=== PATIENT | female | born 1995 | race Caucasian/White ===

== ENCOUNTER → 2016-05-11 | Outpatient (CLI) | payer OTHER ==
[~2016-05-11] MED LIST: BUPR-79 PO; CLON1TAB3 PO; EFFSR75 PO
[2016-05-17 13:53] LABS: CHLAMYDIA TRACH RNA*** NOT DETECTED (NOT DETECTED); GC (NEIS GONORRHOEAE)RNA** NOT DETECTED (NOT DETECTED)
== END | disposition home or self-care (01) ==
LOC: C.LABSPEC 11:39
PROVIDERS: ATTEND Obstetrics & Gynecology
DX: Z11.3 Encounter for screening for infections with a predominantly sexual mode of transmission (principal)

== ENCOUNTER → 2016-05-14 | Outpatient (CLI) | payer OTHER | END | disposition home or self-care (01) | LOC: C.PAPS 15:21 | PROVIDERS: ATTEND Obstetrics & Gynecology | DX: Z01.419 Encounter for gynecological examination (general) (routine) without abnormal findings (principal); R87.610 Atypical squamous cells of undetermined significance on cytologic smear of cervix (ASC-US) ==

== ENCOUNTER 2016-06-10 08:16 | Emergency (ER) | payer OTHER ==
[~2016-06-10] VITALS: Ht 167.6 cm; Wt 62.0 kg
[2016-06-10 08:22] VITALS: TEMP 37.2; Ht 167.6 cm; Wt 62.0 kg
--- NOTE | 2016-06-10 08:27 | EMERGENCY ROOM VISIT NOTE ---
History Report prepared by Jenna: Pablo Taylor Under the Supervision of: Dr. Yahir Roldan M.D. First contact with patient: 08:15 Stated Complaint: OVERDOSE History of Present Illness The patient is a 21 year old female who presents to the Emergency Room with complaints of a sudden Excedrin overdose beginning five hours prior to arrival. She states she was heavily drinking alcohol last night, and she took approximately 15 Excedrin pills around 0300. The patient denies taking any other medication. She states she does not know why she took the pills, but it was not with intent to hurt herself. The patient notes she fell asleep after, and woke up with nausea that she is still experiencing. She states she has a history of panic disorder, so she was feeling nervous upon awakening, as well. The patient denies an experience like today's episode in the past. She notes she takes Wellbutrin and Effexor, as well. The patient denies vomiting, pain in the legs, and any other medical concerns at this time. 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 Please see Additional Medical History Sheet. Past Medical & Surgical Medical Problems: (1) Panic disorder Family History Patient reports no known family medical history. Social History Marital Status: single Occupation Status: [employer] student Current/Historical Medications Scheduled Bupropion (Wellbutrin Sr), 150 MG PO QAM Venlafaxine Hcl (Effexor Extended Rel), 75 MG PO QAM Scheduled PRN Clonazepam (Klonopin), 1 MG PO TID PRN for Anxiety Allergies Coded Allergies: Penicillins (Unverified Allergy, Unknown, RASH, 06/10/16) Physical Exam Vital Signs Date Time Temp Pulse Resp B/P Pulse Ox O2 Delivery O2 Flow Rate FiO2 06/10/16 11:26 114/69 06/10/16 10:06 108 17 111/62 99 Room Air 06/10/16 09:33 107 19 100 Room Air 06/10/16 08:54 103 06/10/16 08:30 99 Room Air 06/10/16 08:22 37.2 134 22 159/84 99 Room Air Physical Exam GENERAL: Patient awake, alert, oriented x 3, and anxious appearing. Patient follows commands. Patient does not appear toxic. Patient is adequately hydrated and well-nourished. SKIN: No erythema, pallor, cyanosis or rash HEENT: Normal head, pupils equal, reactive to light and accommodation. LUNGS: Clear to auscultation. No wheezes, no rales, no rhonchi. HEART: No murmurs. No gallops. No rubs ABDOMEN: No masses, no rebound, no hepatomegaly or splenomegaly. EXTREMITIES: No signs of trauma or infection. NEUROLOGIC: Cranial nerves II-XII within normal limits. No gross motor sensory function deficits. Medical Decision & Procedures ER Provider Diagnostic Interpretation: X ray results are stated below per my interpretation and the radiologist's interpretation. CHEST 2 VIEWS ROUTINE CLINICAL HISTORY: Excedrin overdose overdose COMPARISON STUDY: No previous studies for comparison. FINDINGS: The bones soft tissues and hemidiaphragms are normal. The cardiomediastinal silhouette is normal. The lungs are clear. The pulmonary vasculature is normal. IMPRESSION: Negative chest. Electronically signed by: Trino Sheehan M.D. 06/10/2016 8:59 AM Laboratory Results 06/10/16 08:32 06/10/16 08:32 Test 06/10/16 08:32 06/10/16 08:45 Red Blood Count 4.92 M/uL (4.2-5.4) Mean Corpuscular Volume 92.3 fL (80-100) Mean Corpuscular Hemoglobin 32.3 pg (25-34) Mean Corpuscular Hemoglobin Concent 35.0 g/dl (32-36) RDW Standard Deviation 43.0 fL (36.4-46.3) RDW Coefficient of Variation 12.7 % (11.5-14.5) Mean Platelet Volume 9.2 fL (7.4-10.4) Anion Gap 12.0 mmol/L (3-11) Est Creatinine Clear Calc Drug Dose 138.8 ml/min Estimated GFR () > 150.0 Estimated GFR (Non- 130.3 BUN/Creatinine Ratio 14.7 (10-20) Calcium Level 9.5 mg/dl (8.5-10.1) Total Bilirubin 0.2 mg/dl (0.2-1) Aspartate Amino Transf (AST/SGOT) 18 U/L (15-37) Alanine Aminotransferase (ALT/SGPT) 29 U/L (12-78) Alkaline Phosphatase 79 U/L (45-117) Troponin I < 0.015 ng/ml (0-0.045) Total Protein 8.6 gm/dl (6.4-8.2) Albumin 4.3 gm/dl (3.4-5.0) Globulin 4.3 gm/dl (2.5-4.0) Albumin/Globulin Ratio 1.0 (0.9-2) Salicylates Level 24.0 mg/dl (2.8-20) Acetaminophen Level 31 ug/ml (10-30) Ethyl Alcohol mg/dL 37.0 mg/dl (0-3) Urine Color YELLOW Urine Appearance CLEAR (CLEAR) Urine pH 6.5 (4.5-7.5) Urine Specific [place] 1.015 (1.000-1.030) Urine Protein NEG (NEG) Urine Glucose (UA) NEG (NEG) Urine Ketones 1+ (NEG) Urine Occult Blood TRACE (NEG) Urine Nitrite NEG (NEG) Urine Bilirubin NEG (NEG) Urine Urobilinogen NEG (NEG) Urine Leukocyte Esterase TRACE (NEG) Urine WBC (Auto) 1-5 /hpf (0-5) Urine RBC (Auto) 5-10 /hpf (0-4) Urine Hyaline Casts (Auto) 1-5 /lpf (0-5) Urine Epithelial Cells (Auto) >30 /lpf (0-5) Urine Bacteria (Auto) NEG (NEG) Urine Opiates Screen NEG (NEG) Urine Methadone, Qualitative NEG (NEG) Urine Barbiturates NEG (NEG) Urine Phencyclidine (PCP) Level NEG (NEG) Ur Amphetamine/Methamphetamine NEG (NEG) MDMA (Ecstasy) Screen NEG (NEG) Urine Benzodiazepines Screen NEG (NEG) Urine Cocaine Metabolite NEG (NEG) Urine Marijuana (THC) NEG (NEG) Laboratory results as stated above per my review. Medications Administered Medications (Trade) Dose Ordered Sig/Nikolai Route Start Time Stop Time Status Last Admin Dose Admin Sodium Chloride (Nss 1000ml) 1,000 ml @ 1,000 mls/hr Q1H ONCE IV 06/10/16 09:00 06/10/16 09:59 DC 06/10/16 08:59 1,000 MLS/HR Ondansetron HCl 4 mg 4 mg Q1HWA PRN IV 06/10/16 09:00 06/10/16 11:35 DC 06/10/16 09:00 4 MG Promethazine HCl/ Sodium Chloride (Phenergan Inj/ Nss 50ml) 50.5 ml @ 204 mls/hr NOW STAT IV 06/10/16 09:54 06/10/16 10:08 DC 06/10/16 10:05 204 MLS/HR Clonazepam (Klonopin Tab) 1 mg ONE ONCE PO 06/10/16 10:00 06/10/16 10:01 DC 06/10/16 10:05 1 MG ECG Indication: toxicologic Rate (beats per minute): 111 Rhythm: sinus tachycardia Findings: no acute ischemic change, no ectopy ED Course 0816: Past medical records reviewed. The patient was evaluated in room B3B. A complete history and physical examination was performed. 0900: Ordered Zofran Inj 4 mg IV, Sodium Chloride 1,000 ml @ 1,000 mls/hr IV. 0954: Ordered Promethazine HCl 12.5 mg/Sodium Chloride 50.5 ml @ 204 mls/hr IV. 0959: Reevaluated the patient at this time and updated her. 1000: Ordered Klonopin Tab 1 mg PO. 1115: Upon reevaluation, the patient appeared to have improvement of her symptoms. I discussed today's findings with her. She verbalized agreement of the treatment plan. The patient was discharged home. Medical Decision Nurses notes reviewed. Medical history sheet reviewed. Differential diagnosis includes but is not limited to: acetaminophen/salicylate overdose, alcohol overdose, depression. The patient is here after ingesting proxy 15 Excedrin several hours ago. I was concerned about salicylate or acetaminophen toxicity. The patient also drank alcohol. Multiple labs, EKG, imaging were performed. The patient's levels are below the level required for treatment. The patient was given Zofran and Phenergan for nausea. She was observed for approximately 3 hours. Patient was stable and felt better at time of discharge. Impression Primary Impression: Acetaminophen overdose Additional Impressions: Salicylate overdose Hypokalemia Scribe Attestation The scribe's documentation has been prepared under my direction and personally reviewed by me in its entirety. I confirm that the note above accurately reflects all work, treatment, procedures, and medical decision making performed by me. Departure Information Dispostion Home / Self-Care Forms HOME CARE DOCUMENTATION FORM, IMPORTANT VISIT INFORMATION Patient Instructions My [facility] Additional Instructions Drink extra fluids today. No Excedrin, Tylenol or aspirin for the next 2 days. Return here if you are nauseous or having any other symptoms. Problem Qualifiers
[2016-06-10 08:30] VITALS: O2SAT 99
[2016-06-10 08:49] LABS: HEMATOCRIT 45.4 % (37-47); MEAN CELL VOLUME 92.3 fL (80-100); MEAN CORPUSCULAR HEMOGLOBIN 32.3 pg (25-34); MEAN PLATELET VOLUME 9.2 fL (7.4-10.4); PLATELET COUNT 275 K/uL (130-400); RED BLOOD COUNT 4.92 M/uL (4.2-5.4); WHITE BLOOD COUNT 5.02 K/uL (4.8-10.8)
[2016-06-10 09:00] LABS: MANUAL MICROSCOPIC REQUIRED? NO; REVIEW REQ? NO; URINE APPEARANCE CLEAR (CLEAR); URINE BILIRUBIN NEG (NEG); URINE COLOR YELLOW; URINE EPITHELIAL CELL AUTO >30 /lpf (0-5); URINE NITRITE NEG (NEG); URINE PH 6.5 (4.5-7.5); URINE SPECIFIC GRAVITY 1.015 (1.000-1.030); UROBILINOGEN NEG (NEG); ZZUR CULT IF INDIC CLEAN CATCH NO
[2016-06-10] MEDS ORDERED: SODIUM CHLORIDE 0.9% 1000ML 1,000 ML IV ONE (09:00)
[2016-06-10] MEDS ORDERED: ONDANSETRON INJ 2 MG/ML 2 ML VIAL IV PRN (09:00)
--- NOTE | 2016-06-10 09:00 | DIAGNOSTIC IMAGING REPORT ---
CHEST 2 VIEWS ROUTINE CLINICAL HISTORY: Excedrin overdose overdose COMPARISON STUDY: No previous studies for comparison. FINDINGS: The bones soft tissues and hemidiaphragms are normal. The cardiomediastinal silhouette is normal. The lungs are clear. The pulmonary vasculature is normal. IMPRESSION: Negative chest. Electronically signed by: Trino Sheehan M.D. 06/10/2016 8:59 AM Dictated Date/Time: 06/10/2016 8:58 AM
[2016-06-10 09:05] LABS: BLOOD UREA NITROGEN 9 mg/dl (7-18); BUN/CREATININE RATIO 14.7 (10-20); CALCIUM 9.5 mg/dl (8.5-10.1); CARBON DIOXIDE 23 mmol/L (21-32); CHLORIDE 109 mmol/L (98-107); GLUCOSE 105 mg/dl (70-99); POTASSIUM 3.3 mmol/L (3.5-5.1); SODIUM 144 mmol/L (136-145)
[2016-06-10 09:09] LABS: ALKALINE PHOSPHATASE 79 U/L (45-117); ALT/SGPT 29 U/L (12-78); AST/SGOT 18 U/L (15-37)
[2016-06-10 09:15] LABS: BENZODIAZEPINE, URINE NEG (NEG); COCAINE,URINE NEG (NEG); PHENCYCLIDINE, URINE NEG (NEG)
[2016-06-10] MEDS ORDERED: BUPR-79 PO (09:27)
[2016-06-10] MEDS ORDERED: EFFSR75 PO (09:27)
[2016-06-10] MEDS ORDERED: CLON1TAB3 PO (09:27)
[2016-06-10] MEDS ORDERED: PROMETHAZINE HCL INJ 12.5 MG in SODIUM CHLORIDE 0.9% 50ML 50 ML IV STA (09:54)
[2016-06-10] MEDS ORDERED: CLONAZEPAM 1 MG TAB PO ONE (10:00)
[2016-06-10 10:06] VITALS: PULSE 108; O2SAT 99
[2016-06-10 11:26] VITALS: BP 114/69
== END 2016-06-10 11:27 | disposition home or self-care (01) ==
LOC: EDBD 08:16 → C.EDB 08:17
DX: T39.1X1A Poisoning by 4-Aminophenol derivatives, accidental (unintentional), initial encounter (principal); T39.091A Poisoning by salicylates, accidental (unintentional), initial encounter; E87.6 Hypokalemia; R00.0 Tachycardia, unspecified; F41.0 Panic disorder [episodic paroxysmal anxiety]; Z79.899 Other long term (current) drug therapy; Z88.0 Allergy status to penicillin

== ENCOUNTER → 2016-06-13 | Outpatient (CLI) | payer OTHER ==
--- NOTE | 2016-06-13 13:34 | MAMMOGRAPHY REPORT ---
ULTRASOUND OF LEFT BREAST: 06/13/2016 CLINICAL HISTORY: 21-year-old woman who felt a 3 cm lump in the 6:00 left breast approximately one m onth ago. No skin redness or nipple discharge. However the patient does report nipple itchiness an d other nipple symptoms. COMPARISON: No prior exams were available for comparison. FINDINGS: Real-time high-resolution sonographic evaluation was performed in the periareolar/retroar eolar left breast and also in the area of palpable lump which was pointed out by the patient (occupy ing the 5:00, 6:00 and 7:00 inferior left breast). On palpation there is an island/ridge of dense t issue in the inferior breast, in the area of palpable concern. On ultrasound, there is an island of dense echogenic and hypoechoic glandular tissue correlating as palpated. No underlying suspicious solid or cystic mass is seen. There is no suspicious abnormality or duct ectasia in the periareolar subareolar left breast in the area of soreness, itchiness and swelling of the left nipple. IMPRESSION: ACR BI-RADS CATEGORY 1: NEGATIVE 1. The palpable lump in the inferior left breast correlates with a dense island of glandular tissue and has a benign sonographic appearance. However, clinical follow-up is also recommended, as biops y of a clinically suspicious mass should not be precluded by negative imaging. 2. Clinical follow-up is also recommended for the reported itchiness and soreness of the left nippl e, as no sonographic abnormality was identified in that area either. These results and recommendations were discussed with the patient at the time of the exam. Katherine Hope M.D. ay/:06/13/2016 12:37:11 Infectious Disease Physician: Maile CABRERA)([place]), [facility] letter sent: Normal 1/2 BI-RADS Code: ACR BI-RADS Category 1: Negative
== END | disposition home or self-care (01) ==
LOC: C.MAMM 11:25
PROVIDERS: ATTEND Obstetrics & Gynecology
DX: N63 Unspecified lump in breast (principal)